=== PATIENT | male | born 1985 | race Caucasian/White ===

== ENCOUNTER → 2019-03-03 13:09 | Outpatient (CLI) | payer OTHER ==
--- NOTE | 2019-03-07 14:33 | EC ---
PATIENT:CHAPO GREGORIO DATE OF SERVICE: 03/03/19 SEX: M MEDICAL RECORD: [id number] DATE OF : [birth year] LOCATION:[facility] AGE OF PATIENT: 33 ADMISSION DATE: 03/03/19 REFERRING PHYSICIAN: INTERPRETING PHYSICIAN: JOSIAS KENNEDY MD ECHOCARDIOGRAM REPORT ECHO CHARGES 4 ECHO COMPLETE Date: 03/03/19 CLINICAL DIAGNOSIS: MURMUR ECHOCARDIOGRAPHIC MEASUREMENTS (adult normal given) AC root (d.<3.7cm) 3.6 cm LV Septum d (<1.2 cm> 1.0 cm Valve Excursion 1.8 cm LV Septum (systole) 1.4 cm Left Atria (s.<4.0cm> 4.6 cm LVPW d(<1.2cm) 1.2 cm RV (d.<2.3cm) 4.8 cm LVPW (sytole) 1.5 cm LV diastole(<5.6CM) 6.0 cm MV E-F(>70mm/sec) cm LV systole 4.3 cm LVOT Diameter 2.1 cm MV exc.(>10mm) 2.6 cm Est.ejection fraction (50-75%) % DOPPLER: LVIT cm/sec A 46.0 cm/sec E 101 cm/sec LA cm/sec RVSP 32 mmHg LVOT 128 cm/sec AOP1/2T m/s Asc. Ao 146 cm/sec RVOT 69 cm/sec RA cm/sec PA 123 cm/sec AV Gradient Peak 8.54 mmHg AV Mean 4.82 mmHg AV Area 2.8 cm MV Gradient Peak 5.27 mmHg MV Mean 1.41 mmHg MV Area cm COMMENTS: Gear Room Keeper: 2 SENTIHL RAO Sports Activities Foul Judge: 3 Dr. Pablo TAPE# PACS Pericardial Effusion N DATE OF SERVICE: Adequate 2D, color flow, spectral Doppler, and M-Mode. No LVH. LV internal dimension is normal. Wall motion is normal. EF is greater than or equal to 55%. Aortic valve tricuspid. No evidence of stenosis by Doppler interrogation. Left atrium is normal. Mitral valve shows no prolapse. Trace MR. Right-sided chamber is grossly normal. Trace TR. TRANSINT:[id number] Voice Confirmation ID: [id number] DOCUMENT ID: [id number] ECHOCARDIOGRAM REPORT [id number] CHAPO GREGORIO JOSIAS KENNEDY MD at 1433 CC: [id number] DICTATION DATE: 03/04/19 1319 SITE LEASING AGENT: 03/04/19 1334 DEP CLI 03/03/19 [id number] [place] [address]
--- NOTE | 2019-03-07 14:33 | ST ---
PATIENT:CHAPO GREGORIO MEDICAL RECORD: [id number] SEX: M LOCATION:[facility] ORDER #: ADMISSION DATE: 03/03/19 AGE OF PATIENT: 33 REFERRING PHYSICIAN: INTERPRETING PHYSICIAN: JOSIAS KENNEDY MD DATE OF SERVICE: 03/03/2019 TREADMILL STRESS TEST Baseline ECG is normal. He exercised for 10 minutes on Raj protocol. Maximum heart rate 116 beats per minute, greater than 85% of max predicted. No ECG changes of ischemia. No symptoms of ischemia. Normal blood pressure response to exercise. No arrhythmias noted. Fair exercise tolerance. TRANSINT:[id number] Voice Confirmation ID: [id number] DOCUMENT ID: [id number] JOSIAS KENNEDY MD at 1433 CC: [id number] DICTATION DATE: 03/04/19 1305 AUDIO PRODUCTION INSTRUCTOR: 03/04/19 1329 DEP CLI 03/03/[address] [address]
== END | disposition home or self-care (01) ==
LOC: D.HCCARDIO 13:09
PROVIDERS: ATTEND Internal Medicine Interventional Cardiology
DX: R01.1 Cardiac murmur, unspecified (principal); R07.9 Chest pain, unspecified